=== PATIENT | female | born 1950 | race Caucasian/White ===

== ENCOUNTER → 2016-10-18 | Outpatient (REF) | payer MEDICARE, OTHER ==
[~2016-10-18] MED LIST: /PANT40TA PO; ALEV220T26 PO; ASPI81TA4 PO; CALC600T9 PO; LOPR50TA PO; MULTTAB4 PO; TYLE325T5 PO; VITAD1000T PO
== END ==
LOC: M SFHCPLAZ 17:22
PROVIDERS: ATTEND Dermatology
DX: L82.1 Other seborrheic keratosis (principal); Z85.828 Personal history of other malignant neoplasm of skin; D49.2 Neoplasm of unspecified behavior of bone, soft tissue, and skin; B35.1 Tinea unguium
CPT/HCPCS: 11100; 88305; G0463

== ENCOUNTER → 2016-10-19 | Outpatient (CLI) | payer MEDICARE, OTHER ==
[2016-10-19 10:11] LABS: MEAN CORPUSCULAR HEMOGLOBIN 29.4 pg (27.0-33.0); MEAN CORPUSCULAR HGB CONC 32.9 g/dl (32.0-36.5); MEAN CORPUSCULAR VOLUME 89.4 fl (80.0-96.0); RED CELL DISTRIBUTION WIDTH 12.9 % (11.5-14.5); WHITE BLOOD COUNT 6.9 K/mm3 (4.0-10.0)
[2016-10-19 10:46] LABS: ALBUMIN 3.6 GM/DL (3.2-5.2); ALBUMIN/GLOBULIN RATIO 1.09 (1.00-1.93); ALKALINE PHOSPHATASE 83 U/L (45-117); ALT/SGPT 24 U/L (12-78); ANION GAP 9 MEQ/L (8-16); AST/SGOT 10 U/L (15-37); BILIRUBIN,DIRECT 0.1 MG/DL (0.0-0.2); BILIRUBIN,TOTAL 0.3 MG/DL (0.2-1.0); BLOOD UREA NITROGEN 18 MG/DL (7-18); CARBON DIOXIDE LEVEL 27 MEQ/L (21-32); CHLORIDE LEVEL 106 MEQ/L (98-107); CREATININE FOR GFR 0.76 MG/DL (0.55-1.02); GLOMERULAR FILTRATION RATE > 60.0 (>45); GLUCOSE, FASTING 86 MG/DL (80-110); PHOSPHORUS LEVEL 3.9 MG/DL (2.5-4.9); POTASSIUM SERUM 4.6 MEQ/L (3.5-5.1); SODIUM LEVEL 142 MEQ/L (136-145); TOTAL PROTEIN 6.9 GM/DL (6.4-8.2)
== END | disposition home or self-care (01) ==
LOC: M LAB 09:35
PROVIDERS: ATTEND Podiatrist Foot & Ankle Surgery
DX: Z51.81 Encounter for therapeutic drug level monitoring (principal); B35.1 Tinea unguium; Z79.899 Other long term (current) drug therapy

== ENCOUNTER → 2017-03-06 | Outpatient (REF) | payer MEDICARE, OTHER | LOC: M SFHCPLAZ 14:00 | PROVIDERS: ATTEND Dermatology | DX: C44.81 Basal cell carcinoma of overlapping sites of skin (principal) | CPT/HCPCS: 11100; 88305; G0463 ==

== ENCOUNTER → 2019-08-15 | Outpatient (REF) | payer MEDICARE, OTHER ==
[~2019-08-15] MED LIST changes: -/PANT40TA PO; +PROT1TAB2 PO
[2019-08-19 14:07] LABS: HPV HYBRID CAPTURE II Negative (Negative)
== END ==
LOC: M LAB REF 18:33
PROVIDERS: ATTEND Advanced Practice Midwife
DX: Z12.4 Encounter for screening for malignant neoplasm of cervix (principal)
CPT/HCPCS: 87624; G0123

== ENCOUNTER → 2021-05-11 | Outpatient (REF) | payer MEDICARE, OTHER ==
[2021-05-11 16:23] LABS: C REACTIVE PROTEIN QUANTITATIV 0.82 MG/DL (0.00-0.30); RHEUMATOID FACTOR QUANT < 10.0 IU/ML (<15.0); URIC ACID 6.2 MG/DL (2.6-6.0)
[2021-05-12 18:10] LABS: ANTINUCLEAR ANTIBODIES DIRECT Negative (Negative); Lyme Disease IgG/IgM Antibodie <0.91 ISR (0.00-0.90); Lyme Disease IgM Ab Quantitati <0.80 index (0.00-0.79)
== END ==
LOC: M LAB REF 13:25
PROVIDERS: ATTEND Family Medicine
DX: M17.12 Unilateral primary osteoarthritis, left knee (principal)

== ENCOUNTER → 2022-04-20 | Outpatient (CLI) | payer MEDICARE, OTHER ==
[~2022-04-20] MED LIST changes: +ISOVUE-370 76% 25ML SYRINGE As Ordered ONE
== END ==
LOC: M RAD 14:18
PROVIDERS: ATTEND Family Medicine
DX: R91.1 Solitary pulmonary nodule (principal)
CPT/HCPCS: 71260; Q9967

== ENCOUNTER → 2022-09-18 | Outpatient (CLI) | payer MEDICARE ==
[~2022-09-18] MED LIST changes: -ISOVUE-370 76% 25ML SYRINGE As Ordered ONE
== END ==
LOC: M PLARAD 08:24
PROVIDERS: ATTEND Family Medicine
DX: R91.1 Solitary pulmonary nodule (principal)
CPT/HCPCS: 78815; A9552

== ENCOUNTER 2022-11-06 09:56 | Inpatient (IN) | payer MEDICARE, OTHER ==
[~2022-11-06] VITALS: Ht 165.1 cm; Wt 88.6 kg
[2022-11-06] VITALS (7 sets, daily range): BP systolic 108–143; BP diastolic 55–76
[2022-11-06] MEDS ORDERED: ONDANSETRON 4MG 2ML VIAL IV ONE (10:15)
[2022-11-06] MEDS ORDERED: MORPHINE 4 MG/ML 1ML VIAL IV ONE (10:15)
[2022-11-06] MEDS ORDERED: LISI10TA22 PO (10:24)
[2022-11-06] MEDS ORDERED: ATOR1TAB19 PO (10:24)
[2022-11-06] MEDS ORDERED: AMOX500T PO (10:24)
[2022-11-06] MEDS ORDERED: NS 1,000 ML IV SCH (10:45)
[2022-11-06 11:16] LABS: HEMATOCRIT 39.7 % (36.0-47.0); HEMOGLOBIN 12.6 g/dl (12.0-15.5); MEAN CORPUSCULAR HEMOGLOBIN 30.1 pg (27.0-33.0); MEAN CORPUSCULAR HGB CONC 31.7 g/dl (32.0-36.5); PLATELET COUNT, AUTOMATED 221 10^3/uL (150-450); RED BLOOD COUNT 4.18 10^6/uL (4.00-5.40); WHITE BLOOD COUNT 8.2 10^3/uL (4.0-10.0)
[2022-11-06 11:43] LABS: CREATININE FOR GFR 0.97 MG/DL (0.55-1.30); GLOMERULAR FILTRATION RATE 59.9 (>39); POTASSIUM SERUM 5.3 MMOL/L (3.5-5.1)
[2022-11-06 11:55] LABS: RSV AMPLIFICATION NEGATIVE (NEGATIVE)
[2022-11-06] MEDS ORDERED: BUPIVACAINE HCL 0.5% 30ML VIAL As Ordered ONE (12:33)
[2022-11-06] MEDS ORDERED: LIDOCAINE W/EPINEPHRINE 1% 20ML VIAL As Ordered ONE (12:33)
[2022-11-06] MEDS ORDERED: TRANEXAMIC ACID 100 MG/ML 10ML VIAL As Ordered ONE (12:33)
[2022-11-06] MEDS ORDERED: BUPIVACAINE LIPOSOME/PF 1.3% 20ML VIAL (13.3MG/ML)(EXPAREL) As Ordered ONE (12:34)
[2022-11-06] MEDS ORDERED: VANCOMYCIN 1000MG/20ML VIAL As Ordered ONE (12:34)
[2022-11-06] MEDS ORDERED: MIDAZOLAM INJ 2MG/2ML VIAL As Ordered ONE (12:38)
[2022-11-06] MEDS ORDERED: fentaNYL 100 MCG/2 ML INJECTION As Ordered ONE (12:38)
[2022-11-06] MEDS ORDERED: LIDOCAINE 2% 100MG/5ML SDV (FOR ANES.) As Ordered ONE (12:38)
[2022-11-06] MEDS ORDERED: ROCURONIUM BROMIDE 50MG/5ML VIAL As Ordered ONE (12:38)
[2022-11-06] MEDS ORDERED: propofoL 200 MG/20 ML VIAL As Ordered ONE (12:38)
[2022-11-06] MEDS ORDERED: ONDANSETRON 4MG 2ML VIAL As Ordered ONE (12:38)
[2022-11-06] MEDS ORDERED: ceFAZolin 1GM VIAL As Ordered ONE (12:56)
[2022-11-06] MEDS ORDERED: MORPHINE 2 MG/ML 1ML VIAL IV PRN ×2 (13:05→15:35)
[2022-11-06] MEDS ORDERED: PATIROMER SORBITEX CALCIUM 8.4 GM POWDER PACKET (VELTASSA) PO ONE (13:05)
[2022-11-06] MEDS ORDERED: LIDOCAINE 5% (LIDODERM) PATCH TD ONE (13:05)
[2022-11-06] MEDS ORDERED: MORPHINE 4 MG/ML 1ML VIAL IV PRN (13:05)
[2022-11-06] MEDS ORDERED: ACET1TAB55 PO (13:23)
[2022-11-06] MEDS ORDERED: ERGO500029 PO (13:23)
[2022-11-06] MEDS ORDERED: ASPI-161 PO (13:23)
[2022-11-06] MEDS ORDERED: METO1TAB7 PO (13:23)
[2022-11-06] MEDS ORDERED: TERB250T91 PO (13:23)
[2022-11-06] MEDS ORDERED: PANT-23 PO (13:23)
[2022-11-06] MEDS ORDERED: CALC600T60 PO (13:23)
[2022-11-06 13:47] LABS: INR 0.9; PROTHROMBIN TIME 12.3 SECONDS (12.5-14.5)
[2022-11-06] MEDS ORDERED: KETAMINE HCL 200MG/20ML VIAL As Ordered ONE (13:53)
[2022-11-06] MEDS ORDERED: HOME MED LIST COMPLETE! XX SCH (14:20)
[2022-11-06] MEDS ORDERED: PHENYLEPHRINE 10MG/ML 1ML VIAL As Ordered ONE ×2 (14:32→14:33)
[2022-11-06] MEDS ORDERED: LR 1,000 ML IV SCH (15:35)
[2022-11-06] MEDS ORDERED: oxyCODONE 5MG TAB PO PRN (15:35)
[2022-11-06] MEDS ORDERED: fentaNYL 100 MCG/2 ML INJECTION IV PRN (15:35)
[2022-11-06] MEDS ORDERED: ONDANSETRON 4MG 2ML VIAL IV PRN (15:35)
[2022-11-06] MEDS ORDERED: ACETAMINOPHEN TAB 650MG DOSE (2X325MG) PO PRN (15:45)
[2022-11-06] MEDS ORDERED: PERCOCET 5MG/325MG TAB PO PRN (15:45)
[2022-11-06] MEDS ORDERED: ACETAMINOPHEN 500 MG TAB PO SCH (18:00)
[2022-11-06] MEDS: DICLOFENAC EPOLAMINE 1.3% PATCH TOP SCH (21:00)
[2022-11-06] MEDS: ceFAZolin SOD 2 GM in IV 1 EA IV SCH (21:34)
[2022-11-07 02:00] VITALS: BP 115/63
[2022-11-07] MEDS: MORPHINE 4 MG/ML 1ML VIAL IV PRN ×3 (02:37→14:47)
[2022-11-07] MEDS: ceFAZolin SOD 2 GM in IV 1 EA IV SCH (05:17)
[2022-11-07 05:20] VITALS: BP 113/62
[2022-11-07 06:20] LABS: HEMATOCRIT 30.4 % (36.0-47.0); MEAN CORPUSCULAR HEMOGLOBIN 31.2 pg (27.0-33.0); MEAN CORPUSCULAR HGB CONC 33.2 g/dl (32.0-36.5); MEAN CORPUSCULAR VOLUME 93.8 fl (80.0-96.0); PLATELET COUNT, AUTOMATED 192 10^3/uL (150-450); RED BLOOD COUNT 3.24 10^6/uL (4.00-5.40); WHITE BLOOD COUNT 9.8 10^3/uL (4.0-10.0)
[2022-11-07 06:21] LABS: HEMOGLOBIN 10.1 g/dl (12.0-15.5)
[2022-11-07 06:29] LABS: INR 1.02; PROTHROMBIN TIME 13.6 SECONDS (12.5-14.5)
[2022-11-07 06:37] LABS: ALBUMIN 3.3 G/DL (3.2-5.2); ALKALINE PHOSPHATASE 60 U/L (46-116); ALT/SGPT 11 U/L (7.0-40); AST/SGOT 15 U/L (<34); BILIRUBIN,TOTAL 0.4 MG/DL (0.3-1.2); BLOOD UREA NITROGEN 23 MG/DL (9-23); CALCIUM LEVEL 8.7 MG/DL (8.3-10.6); CARBON DIOXIDE LEVEL 24 MMOL/L (20-31); CHLORIDE LEVEL 106 MMOL/L (98-107); CREATININE FOR GFR 0.84 MG/DL (0.55-1.30); GLOMERULAR FILTRATION RATE > 60.0 (>39); GLUCOSE, FASTING 124 MG/DL (74-106); PHOSPHORUS LEVEL 3.9 MG/DL (2.4-5.1); POTASSIUM SERUM 4.6 MMOL/L (3.5-5.1); SODIUM LEVEL 137 MMOL/L (136-145); TOTAL PROTEIN 5.4 G/DL (5.7-8.2)
[2022-11-07 06:38] LABS: BLOOD UREA NITROGEN 23 MG/DL (9-23); CALCIUM LEVEL 8.7 MG/DL (8.3-10.6); CARBON DIOXIDE LEVEL 25 MMOL/L (20-31); CHLORIDE LEVEL 106 MMOL/L (98-107); CREATININE FOR GFR 0.83 MG/DL (0.55-1.30); GLOMERULAR FILTRATION RATE > 60.0 (>39); GLUCOSE, FASTING 124 MG/DL (74-106); POTASSIUM SERUM 4.6 MMOL/L (3.5-5.1); SODIUM LEVEL 138 MMOL/L (136-145)
[2022-11-07] MEDS: DICLOFENAC EPOLAMINE 1.3% PATCH TOP SCH (09:15)
[2022-11-07 09:18] VITALS: BP 133/94
[2022-11-07] MEDS ORDERED: XARE10TA PO (11:21)
[2022-11-07 14:00] VITALS: BP 131/65
[2022-11-07] MEDS ORDERED: ceFAZolin SOD 2 GM in IV 1 EA IV SCH (14:00)
[2022-11-07 14:30] VITALS: BP 131/83
[2022-11-07 14:47] VITALS: BP 131/83
[2022-11-07] MEDS ORDERED: ENOXAPARIN 30MG/0.3ML SYRINGE (J1650 PER 10MG) SC SCH (21:00)
== END 2022-11-07 16:03 | DRG 482 ==
LOC: M ED 09:56 → M ED INP 12:45 → ENRESERV 14:44 → M MSPAV 16:19
PROVIDERS: ADMIT Student in an Organized Health Care Education/Training Program; ATTEND Internal Medicine
PROC: 0QSC04Z Reposition Left Lower Femur with Internal Fixation Device, Open Approach (ICD-10-PCS; principal; 2022-11-06 12:31)
DX: S72.342A Displaced spiral fracture of shaft of left femur, initial encounter for closed fracture (principal); W00.0XXA Fall on same level due to ice and snow, initial encounter; Y92.89 Other specified places as the place of occurrence of the external cause; Y93.89 Activity, other specified; Y99.8 Other external cause status; I10 Essential (primary) hypertension; E78.5 Hyperlipidemia, unspecified; E66.9 Obesity, unspecified; M25.462 Effusion, left knee; E87.5 Hyperkalemia; M17.12 Unilateral primary osteoarthritis, left knee; Z85.828 Personal history of other malignant neoplasm of skin; Z87.891 Personal history of nicotine dependence; Z79.899 Other long term (current) drug therapy; Z79.82 Long term (current) use of aspirin; Z68.32 Body mass index [BMI] 32.0-32.9, adult

== ENCOUNTER 2022-11-07 14:01 | Inpatient (IN) | payer MEDICARE, OTHER ==
[~2022-11-07] VITALS: Ht 165.1 cm; Wt 88.6 kg
[~2022-11-07 14:01] MED LIST changes: +ACET1TAB55 PO; +AMOX500T PO; +ASPI-161 PO; +ATOR1TAB19 PO; +CALC600T60 PO; +ERGO500029 PO; +LISI10TA22 PO; +METO1TAB7 PO; +PANT-23 PO; +TERB250T91 PO; +XARE10TA PO
[2022-11-07] MEDS ORDERED: BISACODYL 10MG SUPP PR PRN (15:25)
[2022-11-07] MEDS ORDERED: ONDANSETRON 4MG TAB PO PRN (15:25)
[2022-11-07 16:00] VITALS: BP 162/71
[2022-11-07] MEDS ORDERED: HOME MED LIST COMPLETE! XX SCH (16:20)
[2022-11-07] MEDS: RIVAROXABAN 10MG TAB (XARELTO) PO SCH (17:11)
[2022-11-07] MEDS: LACTOBACILLUS ACIDOPHILUS CAP (BACID) PO SCH (17:11)
[2022-11-07] MEDS: DOCUSATE SODIUM 100MG CAPSULE PO SCH (19:35)
[2022-11-07] MEDS: SENNA 8.6 MG TAB (SENOKOT) PO SCH (19:35)
[2022-11-07 19:55] VITALS: BP 149/69
[2022-11-07] MEDS: ACETAMINOPHEN 500 MG TAB PO SCH (21:24)
[2022-11-07] MEDS: AMOXICILLIN 500 MG CAP PO SCH (21:24)
[2022-11-07] MEDS: PANTOPRAZOLE 40MG TAB (PROTONIX) PO SCH (21:24)
[2022-11-07] MEDS: OYSTER SHELL CALCIUM 500 MG TAB PO SCH (21:24)
[2022-11-07] MEDS: DICLOFENAC EPOLAMINE 1.3% PATCH TOP SCH (21:25)
[2022-11-08] MEDS: AMOXICILLIN 500 MG CAP PO SCH ×3 (05:26→20:04)
[2022-11-08] MEDS: oxyCODONE 5MG TAB PO PRN ×3 (05:26→21:29)
[2022-11-08 05:30] VITALS: BP 158/80
[2022-11-08 06:51] LABS: BASO % 0.2 % (0.0-1.0); EOS % 0.2 % (0.0-3.0); HEMATOCRIT 27.6 % (36.0-47.0); LYMPH # 1.8 10^3/uL (1.5-5.0); LYMPH % 22.6 % (24.0-44.0); MEAN CORPUSCULAR HEMOGLOBIN 30.8 pg (27.0-33.0); MEAN CORPUSCULAR HGB CONC 32.6 g/dl (32.0-36.5); MEAN CORPUSCULAR VOLUME 94.5 fl (80.0-96.0); MONO # 0.8 10^3/uL (0.0-0.8); NEUTROPHILS # 5.3 10^3/uL (1.5-8.5); NEUTROPHILS % 66.5 % (36.0-66.0); PLATELET COUNT, AUTOMATED 170 10^3/uL (150-450); RED BLOOD COUNT 2.92 10^6/uL (4.00-5.40)
[2022-11-08 07:19] LABS: ALKALINE PHOSPHATASE 54 U/L (46-116); ALT/SGPT 12 U/L (7.0-40); AST/SGOT 17 U/L (<34); BILIRUBIN,TOTAL 0.4 MG/DL (0.3-1.2); BLOOD UREA NITROGEN 23 MG/DL (9-23); CALCIUM LEVEL 8.7 MG/DL (8.3-10.6); CARBON DIOXIDE LEVEL 25 MMOL/L (20-31); CHLORIDE LEVEL 103 MMOL/L (98-107); CREATININE FOR GFR 0.81 MG/DL (0.55-1.30); GLOMERULAR FILTRATION RATE > 60.0 (>39); GLUCOSE, FASTING 109 MG/DL (74-106); POTASSIUM SERUM 4.3 MMOL/L (3.5-5.1); SODIUM LEVEL 138 MMOL/L (136-145); TOTAL PROTEIN 5.5 G/DL (5.7-8.2)
[2022-11-08] MEDS: LACTOBACILLUS ACIDOPHILUS CAP (BACID) PO SCH ×3 (08:30→16:53)
[2022-11-08] MEDS: OYSTER SHELL CALCIUM 500 MG TAB PO SCH ×2 (08:30→20:03)
[2022-11-08] MEDS: PANTOPRAZOLE 40MG TAB (PROTONIX) PO SCH ×2 (08:30→20:04)
[2022-11-08] MEDS: DOCUSATE SODIUM 100MG CAPSULE PO SCH ×2 (08:30→20:03)
[2022-11-08] MEDS: ACETAMINOPHEN 500 MG TAB PO SCH ×3 (08:31→20:05)
[2022-11-08] MEDS: DICLOFENAC EPOLAMINE 1.3% PATCH TOP SCH ×2 (08:34→20:02)
[2022-11-08] MEDS: ATORVASTATIN 10 MG TAB PO SCH (08:36)
[2022-11-08] MEDS: ASPIRIN 81MG ENTERIC TABLET PO SCH (08:36)
[2022-11-08] MEDS: METOPROLOL SUCC *XL* 25MG TAB (TopROL *XL*) PO SCH (08:36)
[2022-11-08] MEDS ORDERED: RIVAROXABAN 10MG TAB (XARELTO) PO SCH (09:00)
[2022-11-08 14:00] VITALS: BP 138/72
[2022-11-08 14:24] LABS: IRON (FE) 44 UG/DL (50-170); PERCENT SATURATION 15.2 % (13.2-45.0); TOTAL IRON BINDING CAPACITY 290 UG/DL (250-425)
[2022-11-08 16:30] LABS: FERRITIN 105.1 NG/ML (7.3-270.7)
[2022-11-08] MEDS: oxyCODONE 5MG TAB PO SCH (16:53)
[2022-11-08] MEDS: RIVAROXABAN 10MG TAB (XARELTO) PO SCH (16:53)
[2022-11-08] MEDS: SENNA 8.6 MG TAB (SENOKOT) PO SCH (20:03)
[2022-11-09 00:10] VITALS: BP 124/58
[2022-11-09] MEDS: AMOXICILLIN 500 MG CAP PO SCH ×3 (05:38→21:10)
[2022-11-09 07:06] VITALS: BP 157/70
[2022-11-09] MEDS: LACTOBACILLUS ACIDOPHILUS CAP (BACID) PO SCH ×3 (07:40→18:18)
[2022-11-09] MEDS: oxyCODONE 5MG TAB PO SCH ×3 (07:43→16:53)
[2022-11-09] MEDS: DICLOFENAC EPOLAMINE 1.3% PATCH TOP SCH ×2 (11:30→21:11)
[2022-11-09] MEDS: ATORVASTATIN 10 MG TAB PO SCH (11:30)
[2022-11-09] MEDS: ASPIRIN 81MG ENTERIC TABLET PO SCH (11:31)
[2022-11-09] MEDS: DOCUSATE SODIUM 100MG CAPSULE PO SCH ×2 (11:31→21:08)
[2022-11-09] MEDS: ACETAMINOPHEN 500 MG TAB PO SCH ×3 (11:31→21:06)
[2022-11-09] MEDS: FERROUS SULFATE 325MG TAB PO SCH ×2 (11:32→21:06)
[2022-11-09] MEDS: PANTOPRAZOLE 40MG TAB (PROTONIX) PO SCH ×2 (11:32→21:06)
[2022-11-09] MEDS: OYSTER SHELL CALCIUM 500 MG TAB PO SCH ×2 (11:32→21:06)
[2022-11-09] MEDS: METOPROLOL SUCC *XL* 25MG TAB (TopROL *XL*) PO SCH (11:34)
[2022-11-09 14:00] VITALS: BP 116/59
[2022-11-09] MEDS: RIVAROXABAN 10MG TAB (XARELTO) PO SCH (18:18)
[2022-11-09 20:13] VITALS: BP 160/82
[2022-11-09] MEDS: oxyCODONE 5MG TAB PO PRN (21:08)
[2022-11-09] MEDS: SENNA 8.6 MG TAB (SENOKOT) PO SCH (21:08)
[2022-11-10 05:29] VITALS: BP 134/65
[2022-11-10 06:06] LABS: BASO % 0.5 % (0.0-1.0); EOS # 0.2 10^3/uL (0.0-0.5); EOS % 2.3 % (0.0-3.0); HEMATOCRIT 26.2 % (36.0-47.0); HEMOGLOBIN 8.6 g/dl (12.0-15.5); LYMPH # 1.3 10^3/uL (1.5-5.0); LYMPH % 19.7 % (24.0-44.0); MEAN CORPUSCULAR HEMOGLOBIN 31.5 pg (27.0-33.0); MEAN CORPUSCULAR HGB CONC 32.8 g/dl (32.0-36.5); MONO # 0.5 10^3/uL (0.0-0.8); MONO % 8.3 % (2.0-8.0); NEUTROPHILS # 4.5 10^3/uL (1.5-8.5); NEUTROPHILS % 68.1 % (36.0-66.0); PLATELET COUNT, AUTOMATED 185 10^3/uL (150-450); RED BLOOD COUNT 2.73 10^6/uL (4.00-5.40); WHITE BLOOD COUNT 6.5 10^3/uL (4.0-10.0)
[2022-11-10] MEDS: AMOXICILLIN 500 MG CAP PO SCH (06:35)
[2022-11-10] MEDS: oxyCODONE 5MG TAB PO SCH ×3 (06:36→16:14)
[2022-11-10 06:40] LABS: BLOOD UREA NITROGEN 25 MG/DL (9-23); CALCIUM LEVEL 8.5 MG/DL (8.3-10.6); CARBON DIOXIDE LEVEL 26 MMOL/L (20-31); CHLORIDE LEVEL 104 MMOL/L (98-107); CREATININE FOR GFR 0.78 MG/DL (0.55-1.30); GLOMERULAR FILTRATION RATE > 60.0 (>39); GLUCOSE, FASTING 103 MG/DL (74-106); POTASSIUM SERUM 4.1 MMOL/L (3.5-5.1); SODIUM LEVEL 139 MMOL/L (136-145)
[2022-11-10] MEDS: ATORVASTATIN 10 MG TAB PO SCH (09:12)
[2022-11-10] MEDS: ASPIRIN 81MG ENTERIC TABLET PO SCH (09:12)
[2022-11-10] MEDS: MIRALAX *UNIT DOSE* 17GM PACKET PO SCH (09:12)
[2022-11-10] MEDS: OYSTER SHELL CALCIUM 500 MG TAB PO SCH ×2 (09:12→20:23)
[2022-11-10] MEDS: METOPROLOL SUCC *XL* 25MG TAB (TopROL *XL*) PO SCH (09:13)
[2022-11-10] MEDS: LACTOBACILLUS ACIDOPHILUS CAP (BACID) PO SCH ×3 (09:13→17:07)
[2022-11-10] MEDS: PANTOPRAZOLE 40MG TAB (PROTONIX) PO SCH ×2 (09:13→20:24)
[2022-11-10] MEDS: FERROUS SULFATE 325MG TAB PO SCH ×2 (09:14→20:24)
[2022-11-10] MEDS: DOCUSATE SODIUM 100MG CAPSULE PO SCH ×2 (09:14→20:23)
[2022-11-10] MEDS: ACETAMINOPHEN 500 MG TAB PO SCH ×3 (09:14→20:24)
[2022-11-10] MEDS: DICLOFENAC EPOLAMINE 1.3% PATCH TOP SCH ×2 (09:15→20:24)
[2022-11-10 14:11] VITALS: BP 140/66
[2022-11-10] MEDS: RIVAROXABAN 10MG TAB (XARELTO) PO SCH (17:08)
[2022-11-10 20:00] VITALS: BP 160/72
[2022-11-10] MEDS: SENNA 8.6 MG TAB (SENOKOT) PO SCH (20:23)
[2022-11-10] MEDS: oxyCODONE 5MG TAB PO PRN (20:26)
[2022-11-11 06:00] VITALS: BP 142/69
[2022-11-11] MEDS: oxyCODONE 5MG TAB PO SCH ×3 (06:49→16:16)
[2022-11-11] MEDS: FERROUS SULFATE 325MG TAB PO SCH ×2 (07:22→20:39)
[2022-11-11] MEDS: ACETAMINOPHEN 500 MG TAB PO SCH ×3 (07:22→20:40)
[2022-11-11] MEDS: LACTOBACILLUS ACIDOPHILUS CAP (BACID) PO SCH ×3 (07:22→17:17)
[2022-11-11] MEDS: METOPROLOL SUCC *XL* 25MG TAB (TopROL *XL*) PO SCH (07:23)
[2022-11-11] MEDS: PANTOPRAZOLE 40MG TAB (PROTONIX) PO SCH ×2 (07:23→20:39)
[2022-11-11] MEDS: ASPIRIN 81MG ENTERIC TABLET PO SCH (07:23)
[2022-11-11] MEDS: OYSTER SHELL CALCIUM 500 MG TAB PO SCH ×2 (07:23→20:39)
[2022-11-11] MEDS: MIRALAX *UNIT DOSE* 17GM PACKET PO SCH (07:23)
[2022-11-11] MEDS: DOCUSATE SODIUM 100MG CAPSULE PO SCH ×2 (07:24→20:39)
[2022-11-11] MEDS: DICLOFENAC EPOLAMINE 1.3% PATCH TOP SCH ×2 (07:24→20:39)
[2022-11-11] MEDS: ATORVASTATIN 10 MG TAB PO SCH (07:25)
[2022-11-11 14:00] VITALS: BP 123/60
[2022-11-11] MEDS: RIVAROXABAN 10MG TAB (XARELTO) PO SCH (17:17)
[2022-11-11 20:00] VITALS: BP 147/71
[2022-11-11] MEDS: SENNA 8.6 MG TAB (SENOKOT) PO SCH (20:39)
[2022-11-11] MEDS: oxyCODONE 5MG TAB PO PRN (20:43)
[2022-11-12 06:00] VITALS: BP 160/74
[2022-11-12] MEDS: oxyCODONE 5MG TAB PO SCH ×3 (06:02→16:59)
[2022-11-12] MEDS: LACTOBACILLUS ACIDOPHILUS CAP (BACID) PO SCH ×3 (07:52→17:00)
[2022-11-12] MEDS: DICLOFENAC EPOLAMINE 1.3% PATCH TOP SCH ×2 (07:52→20:22)
[2022-11-12] MEDS: OYSTER SHELL CALCIUM 500 MG TAB PO SCH ×2 (07:52→20:20)
[2022-11-12] MEDS: DOCUSATE SODIUM 100MG CAPSULE PO SCH ×2 (07:52→20:19)
[2022-11-12] MEDS: ASPIRIN 81MG ENTERIC TABLET PO SCH (07:52)
[2022-11-12] MEDS: METOPROLOL SUCC *XL* 25MG TAB (TopROL *XL*) PO SCH (07:52)
[2022-11-12] MEDS: FERROUS SULFATE 325MG TAB PO SCH ×2 (07:53→20:19)
[2022-11-12] MEDS: ATORVASTATIN 10 MG TAB PO SCH (07:53)
[2022-11-12] MEDS: PANTOPRAZOLE 40MG TAB (PROTONIX) PO SCH ×2 (07:53→20:20)
[2022-11-12] MEDS: ACETAMINOPHEN 500 MG TAB PO SCH ×3 (07:53→20:21)
[2022-11-12] MEDS: MIRALAX *UNIT DOSE* 17GM PACKET PO SCH (09:00)
[2022-11-12 14:00] VITALS: BP 146/67
[2022-11-12] MEDS: RIVAROXABAN 10MG TAB (XARELTO) PO SCH (17:00)
[2022-11-12 20:00] VITALS: BP 171/73
[2022-11-12] MEDS: SENNA 8.6 MG TAB (SENOKOT) PO SCH (20:19)
[2022-11-12 20:27] VITALS: BP 166/74
[2022-11-12] MEDS: oxyCODONE 5MG TAB PO PRN (20:31)
[2022-11-13 06:00] VITALS: BP 147/67
[2022-11-13] MEDS: oxyCODONE 5MG TAB PO SCH ×3 (06:34→16:29)
[2022-11-13] MEDS: DOCUSATE SODIUM 100MG CAPSULE PO SCH ×2 (09:00→21:12)
[2022-11-13] MEDS: MIRALAX *UNIT DOSE* 17GM PACKET PO SCH (09:00)
[2022-11-13] MEDS: ASPIRIN 81MG ENTERIC TABLET PO SCH (09:32)
[2022-11-13] MEDS: FERROUS SULFATE 325MG TAB PO SCH ×2 (09:32→21:12)
[2022-11-13] MEDS: OYSTER SHELL CALCIUM 500 MG TAB PO SCH ×2 (09:32→21:12)
[2022-11-13] MEDS: ATORVASTATIN 10 MG TAB PO SCH (09:32)
[2022-11-13] MEDS: PANTOPRAZOLE 40MG TAB (PROTONIX) PO SCH ×2 (09:32→21:12)
[2022-11-13] MEDS: LACTOBACILLUS ACIDOPHILUS CAP (BACID) PO SCH ×3 (09:33→18:11)
[2022-11-13] MEDS: ACETAMINOPHEN 500 MG TAB PO SCH ×3 (09:33→21:12)
[2022-11-13] MEDS: METOPROLOL SUCC *XL* 25MG TAB (TopROL *XL*) PO SCH (09:34)
[2022-11-13] MEDS: DICLOFENAC EPOLAMINE 1.3% PATCH TOP SCH ×2 (09:34→21:14)
[2022-11-13 10:34] LABS: BASO % 0.5 % (0.0-1.0); EOS # 0.2 10^3/uL (0.0-0.5); EOS % 2.5 % (0.0-3.0); HEMATOCRIT 30.8 % (36.0-47.0); HEMOGLOBIN 9.9 g/dl (12.0-15.5); LYMPH # 1.1 10^3/uL (1.5-5.0); LYMPH % 15.4 % (24.0-44.0); MEAN CORPUSCULAR HEMOGLOBIN 30.8 pg (27.0-33.0); MEAN CORPUSCULAR HGB CONC 32.1 g/dl (32.0-36.5); MONO # 0.8 10^3/uL (0.0-0.8); MONO % 11.5 % (2.0-8.0); NEUTROPHILS % 68.3 % (36.0-66.0); PLATELET COUNT, AUTOMATED 277 10^3/uL (150-450); RED BLOOD COUNT 3.21 10^6/uL (4.00-5.40); WHITE BLOOD COUNT 7.3 10^3/uL (4.0-10.0)
[2022-11-13 11:19] LABS: BLOOD UREA NITROGEN 16 MG/DL (9-23); CALCIUM LEVEL 8.8 MG/DL (8.3-10.6); CARBON DIOXIDE LEVEL 27 MMOL/L (20-31); CHLORIDE LEVEL 103 MMOL/L (98-107); CREATININE FOR GFR 0.72 MG/DL (0.55-1.30); GLOMERULAR FILTRATION RATE > 60.0 (>39); GLUCOSE, FASTING 110 MG/DL (74-106); POTASSIUM SERUM 4.4 MMOL/L (3.5-5.1); SODIUM LEVEL 138 MMOL/L (136-145)
[2022-11-13] MEDS ORDERED: RAMELTEON 8 MG TAB (ROZEREM) PO PRN (13:00)
[2022-11-13 14:00] VITALS: BP 142/70
[2022-11-13] MEDS: RIVAROXABAN 10MG TAB (XARELTO) PO SCH (18:11)
[2022-11-13 20:00] VITALS: BP 151/73
[2022-11-13] MEDS ORDERED: GABAPENTIN 100 MG CAP PO SCH (21:00)
[2022-11-13] MEDS: SENNA 8.6 MG TAB (SENOKOT) PO SCH (21:12)
[2022-11-13] MEDS: oxyCODONE 5MG TAB PO PRN (21:13)
[2022-11-14 05:55] VITALS: BP 141/65
[2022-11-14] MEDS: DOCUSATE SODIUM 100MG CAPSULE PO SCH ×2 (08:29→20:40)
[2022-11-14] MEDS: LACTOBACILLUS ACIDOPHILUS CAP (BACID) PO SCH ×3 (08:29→17:12)
[2022-11-14] MEDS: ATORVASTATIN 10 MG TAB PO SCH (08:29)
[2022-11-14] MEDS: PANTOPRAZOLE 40MG TAB (PROTONIX) PO SCH ×2 (08:29→20:41)
[2022-11-14] MEDS: ASPIRIN 81MG ENTERIC TABLET PO SCH (08:29)
[2022-11-14] MEDS: FERROUS SULFATE 325MG TAB PO SCH ×2 (08:29→20:52)
[2022-11-14] MEDS: OYSTER SHELL CALCIUM 500 MG TAB PO SCH ×2 (08:29→20:40)
[2022-11-14] MEDS: METOPROLOL SUCC *XL* 25MG TAB (TopROL *XL*) PO SCH (08:30)
[2022-11-14] MEDS: MIRALAX *UNIT DOSE* 17GM PACKET PO SCH (08:31)
[2022-11-14] MEDS: DICLOFENAC EPOLAMINE 1.3% PATCH TOP SCH ×2 (08:31→20:42)
[2022-11-14] MEDS: ACETAMINOPHEN 500 MG TAB PO SCH ×3 (08:31→20:42)
[2022-11-14] MEDS: oxyCODONE 5MG TAB PO SCH ×2 (11:42→17:15)
[2022-11-14 14:50] VITALS: BP 147/70
[2022-11-14] MEDS: RIVAROXABAN 10MG TAB (XARELTO) PO SCH (17:13)
[2022-11-14] MEDS: GABAPENTIN 100 MG CAP PO SCH ×2 (17:13→20:40)
[2022-11-14 20:00] VITALS: BP 139/61
[2022-11-14] MEDS: SENNA 8.6 MG TAB (SENOKOT) PO SCH (20:41)
[2022-11-14] MEDS: oxyCODONE 5MG TAB PO PRN (21:47)
[2022-11-15 06:00] VITALS: BP 131/58
[2022-11-15 07:28] LABS: BASO % 0.4 % (0.0-1.0); EOS # 0.2 10^3/uL (0.0-0.5); HEMATOCRIT 27.6 % (36.0-47.0); LYMPH # 1.3 10^3/uL (1.5-5.0); MEAN CORPUSCULAR HEMOGLOBIN 31.3 pg (27.0-33.0); MEAN CORPUSCULAR HGB CONC 32.6 g/dl (32.0-36.5); MEAN CORPUSCULAR VOLUME 95.8 fl (80.0-96.0); MONO # 0.6 10^3/uL (0.0-0.8); NEUTROPHILS # 3.1 10^3/uL (1.5-8.5); NEUTROPHILS % 58.5 % (36.0-66.0); PLATELET COUNT, AUTOMATED 225 10^3/uL (150-450); RED BLOOD COUNT 2.88 10^6/uL (4.00-5.40); WHITE BLOOD COUNT 5.3 10^3/uL (4.0-10.0)
[2022-11-15] MEDS: MIRALAX *UNIT DOSE* 17GM PACKET PO SCH (07:35)
[2022-11-15 07:56] LABS: BLOOD UREA NITROGEN 22 MG/DL (9-23); CARBON DIOXIDE LEVEL 29 MMOL/L (20-31); CHLORIDE LEVEL 105 MMOL/L (98-107); CREATININE FOR GFR 0.75 MG/DL (0.55-1.30); GLOMERULAR FILTRATION RATE > 60.0 (>39); GLUCOSE, FASTING 102 MG/DL (74-106); POTASSIUM SERUM 4.3 MMOL/L (3.5-5.1); SODIUM LEVEL 139 MMOL/L (136-145)
[2022-11-15] MEDS: FERROUS SULFATE 325MG TAB PO SCH ×2 (08:31→21:01)
[2022-11-15] MEDS: GABAPENTIN 100 MG CAP PO SCH ×3 (08:31→21:01)
[2022-11-15] MEDS: OYSTER SHELL CALCIUM 500 MG TAB PO SCH ×2 (08:31→21:01)
[2022-11-15] MEDS: oxyCODONE 5MG TAB PO SCH ×3 (08:32→15:36)
[2022-11-15] MEDS: ACETAMINOPHEN 500 MG TAB PO SCH ×3 (08:32→21:02)
[2022-11-15] MEDS: ATORVASTATIN 10 MG TAB PO SCH (08:33)
[2022-11-15] MEDS: LACTOBACILLUS ACIDOPHILUS CAP (BACID) PO SCH ×3 (08:33→17:01)
[2022-11-15] MEDS: DOCUSATE SODIUM 100MG CAPSULE PO SCH ×2 (08:33→21:01)
[2022-11-15] MEDS: DICLOFENAC EPOLAMINE 1.3% PATCH TOP SCH ×2 (08:33→21:02)
[2022-11-15] MEDS: METOPROLOL SUCC *XL* 25MG TAB (TopROL *XL*) PO SCH (08:33)
[2022-11-15] MEDS: ASPIRIN 81MG ENTERIC TABLET PO SCH (08:33)
[2022-11-15] MEDS: PANTOPRAZOLE 40MG TAB (PROTONIX) PO SCH ×2 (08:33→21:01)
[2022-11-15] MEDS ORDERED: PANT-23 PO (09:54)
[2022-11-15] MEDS ORDERED: XARE10TA PO (09:54)
[2022-11-15] MEDS ORDERED: OXYC-517 PO (09:54)
[2022-11-15] MEDS ORDERED: GABA-1171 PO (09:54)
[2022-11-15] MEDS ORDERED: ASPI-161 PO (09:54)
[2022-11-15] MEDS ORDERED: ATOR1TAB19 PO (09:54)
[2022-11-15] MEDS ORDERED: LISI10TA22 PO (09:54)
[2022-11-15] MEDS ORDERED: FERR1TAB8 PO (09:54)
[2022-11-15] MEDS ORDERED: METO1TAB7 PO (09:54)
[2022-11-15 14:00] VITALS: BP 142/61
[2022-11-15] MEDS ORDERED: CYMB1CAP4 PO (16:01)
[2022-11-15] MEDS: RIVAROXABAN 10MG TAB (XARELTO) PO SCH (17:01)
[2022-11-15 20:20] VITALS: BP 132/65
[2022-11-15] MEDS: SENNA 8.6 MG TAB (SENOKOT) PO SCH (21:01)
[2022-11-15] MEDS: oxyCODONE 5MG TAB PO PRN (22:01)
[2022-11-16 06:30] VITALS: BP 155/72
[2022-11-16] MEDS: oxyCODONE 5MG TAB PO SCH ×2 (07:02→12:07)
[2022-11-16] MEDS: METOPROLOL SUCC *XL* 25MG TAB (TopROL *XL*) PO SCH (08:36)
[2022-11-16] MEDS: ASPIRIN 81MG ENTERIC TABLET PO SCH (08:36)
[2022-11-16] MEDS: DOCUSATE SODIUM 100MG CAPSULE PO SCH (08:36)
[2022-11-16] MEDS: LACTOBACILLUS ACIDOPHILUS CAP (BACID) PO SCH ×2 (08:36→12:07)
[2022-11-16] MEDS: PANTOPRAZOLE 40MG TAB (PROTONIX) PO SCH (08:36)
[2022-11-16 08:37] VITALS: BP 155/72
[2022-11-16] MEDS: ATORVASTATIN 10 MG TAB PO SCH (08:37)
[2022-11-16] MEDS: DICLOFENAC EPOLAMINE 1.3% PATCH TOP SCH (08:37)
[2022-11-16] MEDS: OYSTER SHELL CALCIUM 500 MG TAB PO SCH (08:37)
[2022-11-16] MEDS: GABAPENTIN 100 MG CAP PO SCH (08:37)
[2022-11-16] MEDS: ACETAMINOPHEN 500 MG TAB PO SCH (08:37)
[2022-11-16] MEDS: FERROUS SULFATE 325MG TAB PO SCH (08:38)
[2022-11-16] MEDS: MIRALAX *UNIT DOSE* 17GM PACKET PO SCH (09:00)
[2022-11-16] MEDS ORDERED: DULoxetine 20MG CAP (CYMBALTA) PO SCH (09:00)
== END 2022-11-16 13:25 | disposition home health service (06) | DRG 561 ==
LOC: M PM&R 16:08
PROVIDERS: ADMIT Physical Medicine & Rehabilitation; ATTEND Physical Medicine & Rehabilitation
DX: S72.342D Displaced spiral fracture of shaft of left femur, subsequent encounter for closed fracture with routine healing (principal); R26.89 Other abnormalities of gait and mobility; I10 Essential (primary) hypertension; D50.0 Iron deficiency anemia secondary to blood loss (chronic); E78.5 Hyperlipidemia, unspecified; E66.9 Obesity, unspecified; M19.90 Unspecified osteoarthritis, unspecified site; K02.9 Dental caries, unspecified; E87.5 Hyperkalemia; R58 Hemorrhage, not elsewhere classified; G47.00 Insomnia, unspecified; Z74.09 Other reduced mobility; Z74.1 Need for assistance with personal care; Z85.828 Personal history of other malignant neoplasm of skin; Z87.891 Personal history of nicotine dependence; Z79.82 Long term (current) use of aspirin; Z79.01 Long term (current) use of anticoagulants; Z79.899 Other long term (current) drug therapy; Z68.32 Body mass index [BMI] 32.0-32.9, adult; T45.515A Adverse effect of anticoagulants, initial encounter

== ENCOUNTER → 2022-11-22 | Outpatient (CLI) | payer MEDICARE, OTHER ==
[~2022-11-22] MED LIST changes: +CYMB1CAP4 PO; +FERR1TAB8 PO; +GABA-1171 PO; +OXYC-517 PO
== END ==
LOC: M SOG 07:55
PROVIDERS: ATTEND Orthopaedic Surgery
DX: Z47.89 Encounter for other orthopedic aftercare (principal)

== ENCOUNTER → 2022-11-28 | Outpatient (REF) | payer MEDICARE, OTHER | LOC: M LAB REF 16:09 | PROVIDERS: ATTEND Family Medicine | DX: D64.9 Anemia, unspecified (principal) ==

== ENCOUNTER → 2022-12-13 | Outpatient (CLI) | payer MEDICARE, OTHER | LOC: M SOG 08:06 | PROVIDERS: ATTEND Orthopaedic Surgery | DX: S72.342D Displaced spiral fracture of shaft of left femur, subsequent encounter for closed fracture with routine healing (principal); W18.30XD Fall on same level, unspecified, subsequent encounter; Y92.009 Unspecified place in unspecified non-institutional (private) residence as the place of occurrence of the external cause ==

== ENCOUNTER → 2023-02-02 | Outpatient (CLI) | payer MEDICARE, OTHER | LOC: M SOG 08:10 | PROVIDERS: ATTEND Orthopaedic Surgery | DX: S72.342D Displaced spiral fracture of shaft of left femur, subsequent encounter for closed fracture with routine healing (principal); W18.30XD Fall on same level, unspecified, subsequent encounter; Y92.009 Unspecified place in unspecified non-institutional (private) residence as the place of occurrence of the external cause ==

== ENCOUNTER → 2023-03-26 | Outpatient (CLI) | payer MEDICARE, OTHER | LOC: M SOG 07:56 | PROVIDERS: ATTEND Orthopaedic Surgery | DX: R10.2 Pelvic and perineal pain (principal); S72.342D Displaced spiral fracture of shaft of left femur, subsequent encounter for closed fracture with routine healing; W18.30XA Fall on same level, unspecified, initial encounter; Y92.009 Unspecified place in unspecified non-institutional (private) residence as the place of occurrence of the external cause ==

== ENCOUNTER → 2023-05-17 | Outpatient (CLI) | payer MEDICARE, OTHER ==
[~2023-05-17] MED LIST changes: +ISOVUE-370 76% 100ML VIAL As Ordered ONE
== END ==
LOC: M RAD 09:48
PROVIDERS: ATTEND Family Medicine
DX: R91.1 Solitary pulmonary nodule (principal)
CPT/HCPCS: 71260; 72110; Q9967

== ENCOUNTER 2023-07-10 06:05 | Day surgery (SDC) | payer MEDICARE, OTHER ==
[~2023-07-10] VITALS: Ht 165.1 cm; Wt 94.5 kg
[~2023-07-10 06:05] MED LIST changes: +ALEV220T22 PO; +ARTH650T17 PO; +DULO1CAP4 PO; +IBUP-1022 PO; +IPRA6SP; -ISOVUE-370 76% 100ML VIAL As Ordered ONE; +JUBL1SOL TOP; +KETO2CR TOP; +NYST-13 TOP; +OMEG-26 PO; +OSTETAB2 PO; +RA T500C2 PO; +RANI15TA PO; +TRET0.0516 TOP; +UNRESOLVED CLARIFICATION ENTRY XX SCH; +[UNRECOGNIZED DRUG - OTHER] PO
[2023-07-10] MEDS ORDERED: ceFAZolin SOD 2 GM in IV 1 EA IV ONE (06:45)
[2023-07-10] MEDS ORDERED: LR 1,000 ML IV SCH ×2 (06:50→08:20)
[2023-07-10] MEDS ORDERED: LIDOCAINE 2% 100MG/5ML SDV (FOR ANES.) As Ordered ONE (07:02)
[2023-07-10] MEDS ORDERED: ONDANSETRON 4MG 2ML VIAL As Ordered ONE (07:02)
[2023-07-10] MEDS ORDERED: propofoL 200 MG/20 ML VIAL As Ordered ONE (07:02)
[2023-07-10] MEDS ORDERED: fentaNYL 100 MCG/2 ML INJECTION As Ordered ONE (07:07)
[2023-07-10] MEDS ORDERED: MIDAZOLAM INJ 2MG/2ML VIAL As Ordered ONE (07:08)
[2023-07-10] MEDS ORDERED: ACETAMINOPHEN 1000MG 100ML IV BAG As Ordered ONE (07:52)
[2023-07-10] MEDS ORDERED: fentaNYL 100 MCG/2 ML INJECTION IV PRN (08:20)
[2023-07-10] MEDS ORDERED: oxyCODONE 5MG TAB PO PRN (08:20)
[2023-07-10] MEDS ORDERED: ONDANSETRON 4MG 2ML VIAL IV PRN (08:20)
[2023-07-10] MEDS ORDERED: PERC5TAB12 PO (08:34)
[2023-07-10 09:39] VITALS: BP 172/75; TEMP 97.1; O2SAT 97
== END 2023-07-10 09:39 | disposition home or self-care (01) ==
LOC: M SDC 06:05
PROVIDERS: ATTEND Orthopaedic Surgery
DX: T84.84XA Pain due to internal orthopedic prosthetic devices, implants and grafts, initial encounter (principal); Y79.2 Prosthetic and other implants, materials and accessory orthopedic devices associated with adverse incidents; I10 Essential (primary) hypertension; E78.00 Pure hypercholesterolemia, unspecified; Z91.048 Other nonmedicinal substance allergy status; Z79.899 Other long term (current) drug therapy
CPT/HCPCS: 20680; 76000; C9290; J0131; J0665; J0690; J1100; J2250; J2405; J3010

== ENCOUNTER → 2023-07-16 | Outpatient (CLI) | payer MEDICARE, OTHER ==
[~2023-07-16] MED LIST changes: +PERC5TAB12 PO; -UNRESOLVED CLARIFICATION ENTRY XX SCH
== END ==
LOC: M SOG 11:08
PROVIDERS: ATTEND Orthopaedic Surgery
DX: Z47.89 Encounter for other orthopedic aftercare (principal)

== ENCOUNTER → 2023-08-29 | Outpatient (CLI) | payer MEDICARE, OTHER | LOC: M SOG 07:52 | PROVIDERS: ATTEND Orthopaedic Surgery | DX: M25.562 Pain in left knee (principal); M25.561 Pain in right knee ==

== ENCOUNTER → 2023-10-23 | Outpatient (REF) | payer MEDICARE, OTHER | LOC: M LAB REF 17:17 | PROVIDERS: ATTEND Internal Medicine Pulmonary Disease | DX: R05.9 Cough, unspecified (principal) ==

== ENCOUNTER → 2024-01-21 | Outpatient (REF) | payer MEDICARE, OTHER ==
[~2024-01-21] MED LIST changes: -ASPI-161 PO; +ASPI-615 PO
== END ==
LOC: M SFHCDERM 17:54
PROVIDERS: ATTEND Physician Assistant
DX: L57.0 Actinic keratosis (principal)

== ENCOUNTER → 2024-01-23 | Outpatient (CLI) | payer MEDICARE, OTHER | LOC: M SLEEP 20:00 | PROVIDERS: ATTEND Internal Medicine Pulmonary Disease | DX: G47.33 Obstructive sleep apnea (adult) (pediatric) (principal) ==

== ENCOUNTER → 2024-02-27 | Outpatient (CLI) | payer MEDICARE, OTHER ==
[~2024-02-27] MED LIST changes: +ALLI60CA2 PO; +CENT1TAB PO; +CETI10CA13 PO; +GLUC1TAB58 PO; +JUBL1SOL EX
== END ==
LOC: M SOG 07:58
PROVIDERS: ATTEND Orthopaedic Surgery
DX: T84.195D Other mechanical complication of internal fixation device of left femur, subsequent encounter (principal); M17.0 Bilateral primary osteoarthritis of knee

== ENCOUNTER 2024-03-13 09:39 | Day surgery (SDC) | payer MEDICARE, OTHER ==
[~2024-03-13] VITALS: Ht 165.1 cm; Wt 92.1 kg
[2024-03-13] MEDS: NS 1,000 ML IV ONE (09:54)
[2024-03-13] MEDS ORDERED: LIDOCAINE 2% 100MG/5ML SDV (FOR ANES.) As Ordered ONE (10:00)
[2024-03-13] MEDS ORDERED: propofoL 200 MG/20 ML VIAL As Ordered ONE (10:00)
[2024-03-13 11:05] VITALS: TEMP 97.2
[2024-03-13 11:23] VITALS: BP 148/65; O2SAT 99
== END 2024-03-13 11:36 | disposition home or self-care (01) ==
LOC: M OPP 09:39
PROVIDERS: ATTEND Surgery
DX: Z12.11 Encounter for screening for malignant neoplasm of colon (principal); Z87.891 Personal history of nicotine dependence; Z79.1 Long term (current) use of non-steroidal anti-inflammatories (NSAID); Z79.02 Long term (current) use of antithrombotics/antiplatelets; Z79.899 Other long term (current) drug therapy; Z88.6 Allergy status to analgesic agent; Z88.8 Allergy status to other drugs, medicaments and biological substances; Z91.048 Other nonmedicinal substance allergy status; Z91.018 Allergy to other foods

== ENCOUNTER → 2024-03-15 | Outpatient (CLI) | payer MEDICARE, OTHER | LOC: M SLEEP 20:00 | PROVIDERS: ATTEND Internal Medicine Pulmonary Disease | DX: G47.33 Obstructive sleep apnea (adult) (pediatric) (principal) ==

== ENCOUNTER → 2024-05-20 | Outpatient (CLI) | payer MEDICARE, OTHER | LOC: M RAD 09:47 | PROVIDERS: ATTEND Internal Medicine Pulmonary Disease | DX: R91.1 Solitary pulmonary nodule (principal) ==

== ENCOUNTER → 2024-08-04 | Outpatient (CLI) | payer MEDICARE, OTHER | LOC: M PLARAD 14:04 | PROVIDERS: ATTEND Internal Medicine Pulmonary Disease | DX: R91.8 Other nonspecific abnormal finding of lung field (principal) ==

== ENCOUNTER → 2024-08-18 | Outpatient (CLI) | payer MEDICARE, OTHER | LOC: M SOG 07:50 | PROVIDERS: ATTEND Orthopaedic Surgery | DX: S72.492D Other fracture of lower end of left femur, subsequent encounter for closed fracture with routine healing (principal); M17.0 Bilateral primary osteoarthritis of knee ==

== ENCOUNTER → 2024-08-26 | Outpatient (CLI) | payer MEDICARE, OTHER | LOC: M RAD 10:33 | PROVIDERS: ATTEND Internal Medicine Pulmonary Disease | DX: R91.8 Other nonspecific abnormal finding of lung field (principal) ==

== ENCOUNTER 2024-09-10 07:28 | Day surgery (SDC) | payer MEDICARE, OTHER ==
[~2024-09-10] VITALS: Ht 165.1 cm; Wt 95.2 kg
[~2024-09-10 07:28] MED LIST changes: +PRED10TA2 PO; +TRIA1CR80 TOP
[2024-09-10] MEDS ORDERED: ROCURONIUM BROMIDE 50MG/5ML VIAL As Ordered ONE (07:56)
[2024-09-10] MEDS ORDERED: propofoL 200 MG/20 ML VIAL As Ordered ONE (07:56)
[2024-09-10] MEDS ORDERED: ONDANSETRON 4MG 2ML VIAL As Ordered ONE (07:56)
[2024-09-10] MEDS ORDERED: SUGAMMADEX SODIUM 500 MG/5 ML VIAL (BRIDION) As Ordered ONE (07:56)
[2024-09-10] MEDS ORDERED: LIDOCAINE 2% 100MG/5ML SDV (FOR ANES.) As Ordered ONE (07:56)
[2024-09-10] MEDS ORDERED: fentaNYL 100 MCG/2 ML INJECTION As Ordered ONE (08:04)
[2024-09-10] MEDS: NS (Normal Saline) 0.9% 1,000 ML IV SCH (08:42)
[2024-09-10] MEDS: ALBUTEROL SULFATE 2.5MG/0.5ML INH NEB SOLN INH ONE (09:11)
[2024-09-10] MEDS: LIDOCAINE PRES-FREE 2% 10ML AMP NEB ONE (09:11)
[2024-09-10] MEDS ORDERED: LR 500 ML IV SCH (09:40)
[2024-09-10] MEDS ORDERED: ACETAMINOPHEN 1000MG/100ML IV BAG As Ordered ONE (09:52)
[2024-09-10] MEDS: CETACAINE SPRAY 5GM As Ordered ONE (09:55)
[2024-09-10] MEDS: EPINEPHrine 1MG/10ML SYRINGE 1.5IN As Ordered ONE (10:40)
[2024-09-10] MEDS ORDERED: ONDANSETRON 4MG 2ML VIAL IV PRN (11:00)
[2024-09-10] MEDS ORDERED: fentaNYL 100 MCG/2 ML INJECTION IV PRN (11:00)
[2024-09-10] MEDS: THROMBIN 5,000 UNITS VIAL As Ordered ONE (11:03)
[2024-09-10 12:00] VITALS: BP 148/73; TEMP 97.3; O2SAT 94
== END 2024-09-10 12:18 | disposition home or self-care (01) ==
LOC: M SDC 07:28
PROVIDERS: ATTEND Internal Medicine Pulmonary Disease
DX: C34.32 Malignant neoplasm of lower lobe, left bronchus or lung (principal); G47.30 Sleep apnea, unspecified; Z91.048 Other nonmedicinal substance allergy status; Z79.899 Other long term (current) drug therapy
CPT/HCPCS: 31626; 31627; 31628; 31654; 71045; 76000; 88305; 93005; C1601; J0131; J0171; J1100; J2405; J3010; S2900

== ENCOUNTER 2024-12-03 10:25 | Emergency (ER) | payer MEDICARE, OTHER ==
[~2024-12-03] VITALS: Ht 162.6 cm; Wt 96.4 kg
[2024-12-03 10:35] VITALS: TEMP 97
[2024-12-03] MEDS: ACETAMINOPHEN 325 MG TAB PO ONE (16:05)
[2024-12-03 16:51] VITALS: O2SAT 97
[2024-12-03 18:12] LABS: CK-MB VALUE MASS < 1.0 NG/ML (<3.6)
[2024-12-03 18:14] LABS: CPK CREATINE PHOSPHOKINASE 34 U/L (34-145); MB/CK RELATIVE INDEX 2.94 (< OR =4)
[2024-12-03 18:36] LABS: CK-MB VALUE MASS < 1.0 NG/ML (<3.6)
[2024-12-03 18:37] LABS: CPK CREATINE PHOSPHOKINASE 38 U/L (34-145); MB/CK RELATIVE INDEX 2.63 (< OR =4)
[2024-12-03 18:38] LABS: BLOOD UREA NITROGEN 16 MG/DL (9-23); CALCIUM LEVEL 9.7 MG/DL (8.3-10.6); CARBON DIOXIDE LEVEL 26 MMOL/L (20-31); CHLORIDE LEVEL 105 MMOL/L (98-107); CREATININE FOR GFR 0.74 MG/DL (0.55-1.30); GLOMERULAR FILTRATION RATE > 60.0 (>39); GLUCOSE, FASTING 98 MG/DL (74-106); POTASSIUM SERUM 4.5 MMOL/L (3.5-5.1); SODIUM LEVEL 140 MMOL/L (136-145)
[2024-12-03] MEDS: atenoloL 50 MG TAB PO ONE (19:20)
[2024-12-03 19:27] LABS: BASO % 0.2 % (0.0-1.0); EOS # 0.3 10^3/uL (0.0-0.5); EOS % 3.2 % (0.0-3.0); HEMATOCRIT 39.2 % (36.0-47.0); HEMOGLOBIN 12.7 g/dl (12.0-15.5); LYMPH # 1.4 10^3/uL (1.5-5.0); LYMPH % 16.9 % (24.0-44.0); MEAN CORPUSCULAR HEMOGLOBIN 30.2 pg (27.0-33.0); MEAN CORPUSCULAR HGB CONC 32.4 g/dl (32.0-36.5); MEAN CORPUSCULAR VOLUME 93.1 fl (80.0-96.0); MONO # 0.6 10^3/uL (0.0-0.8); MONO % 7.2 % (2.0-8.0); NEUTROPHILS # 5.9 10^3/uL (1.5-8.5); NEUTROPHILS % 71.9 % (36.0-66.0); PLATELET COUNT, AUTOMATED 245 10^3/uL (150-450); RED BLOOD COUNT 4.21 10^6/uL (4.00-5.40); WHITE BLOOD COUNT 8.2 10^3/uL (4.0-10.0)
[2024-12-03 20:05] VITALS: BP 180/78
== END 2024-12-03 20:29 | disposition home or self-care (01) ==
LOC: M ED 10:25
DX: I10 Essential (primary) hypertension (principal); E78.5 Hyperlipidemia, unspecified; G47.33 Obstructive sleep apnea (adult) (pediatric); Z91.018 Allergy to other foods; Z79.1 Long term (current) use of non-steroidal anti-inflammatories (NSAID); Z79.52 Long term (current) use of systemic steroids; Z79.810 Long term (current) use of selective estrogen receptor modulators (SERMs); Z79.899 Other long term (current) drug therapy

== ENCOUNTER → 2025-05-28 | Outpatient (REF) | payer MEDICARE, OTHER ==
[~2025-05-28] MED LIST changes: -IBUP-1022 PO; +IBUP600T42 PO; -NYST-13 TOP; +NYST0.1C TOP; -RA T500C2 PO; +TURM500C10 PO
[2025-05-28 12:18] LABS: INR 0.89
[2025-05-28 12:22] LABS: IRON (FE) 77.0 UG/DL (50-170); PERCENT SATURATION 19.9 % (13.2-45.0)
== END ==
LOC: M LAB REF 11:56
PROVIDERS: ATTEND Family Medicine
DX: Z01.818 Encounter for other preprocedural examination (principal); M25.561 Pain in right knee